=== PATIENT | female | born 1990 | race Caucasian/White ===

== ENCOUNTER 2021-12-28 07:41 | Outpatient (REF) | payer BC, SELFPAY ==
--- NOTE | ~2021-12-28 | XR_ITS ---
EXAMINATION: XR THORACIC SPINE CLINICAL INFORMATION: Pain in the thoracic spine COMPARISON: None TECHNIQUE: 3 views of the thoracic spine were obtained. FINDINGS: There is no fracture or bone destruction seen and the vertebral alignment is normal. There is no disc space narrowing. There is no abnormality of the paraspinal soft tissues. The visualized lungs are clear. XR/XR thoracic spine 3V IMPRESSION: Normal appearance of the thoracic spine.
--- NOTE | ~2021-12-28 | XR_ITS ---
EXAMINATION: XR RIBS, RIGHT CLINICAL INFORMATION: Right rib pain COMPARISON: None TECHNIQUE: 3 views of the right ribs were obtained. Frontal view of the chest. FINDINGS: Lungs are clear. No consolidation, pneumothorax, or pleural effusion. The cardiomediastinal silhouette and pulmonary vasculature are normal. Osseous structures are unremarkable. A marker overlies the lower right ribs. Ribs are intact. No fractures are identified. XR/XR ribs RT min 3V w CXR1V IMPRESSION: Clear lungs. No focal rib abnormality identified.
[2021-12-28 11:24] LABS: MANUAL DIFF FLAG NO
[2021-12-28 11:35] LABS: Appearance Urine HAZY; Color Urine YELLOW; Glucose Urine UA NEG (NEG); Leukocyte Esterase Urine NEG (NEG); Nitrite Urine NEG (NEG); Specific Gravity - Urine 1.025 (1.005-1.025); UACC Culture Trigger NO; Urine Blood TRACE (NEG); Urine Ketones NEG (NEG); Urine Protein NEG (NEG-TRACE)
[2021-12-28 11:40] LABS: Basophils Absolute Auto 0.1 X10*3/uL (0.0-0.2); Basophils Percent Auto 1.3 % (0-2); Eosinophils Absolute Auto 0.2 X10*3/uL (0.0-0.4); Eosinophils Percent Auto 3.4 % (0-4); Hematocrit 39.2 % (37.0-47.0); Hemoglobin 13.1 g/dl (12.0-16.0); Lymphocytes Absolute Auto 1.8 X10*3/uL (1.2-4.9); Lymphocytes Percent Auto 40.7 % (20-40); Mean Corpuscular HGB Conc 33.4 g/dl (31.0-35.0); Mean Corpuscular Hemoglobin 30.3 pg (27.0-33.0); Mean Corpuscular Volume 90.5 fL (80.0-98.0); Mean Platelet Volume 10.4 fL (9.4-12.3); Monocytes Absolute Auto 0.7 X10*3/uL (0.1-1.2); Monocytes Percent Auto 14.6 % (2-11); Neutrophils Absolute Auto 1.8 x10*3/uL (2.0-8.3); Platelet Count 239 X10*3/uL (160-400); Red Blood Count 4.33 X10*6/uL (4.20-5.50); Red Cell Distribution Width 12.4 % (11.0-16.0); White Blood Count 4.5 X10*3/uL (4.8-10.8)
[2021-12-28 11:59] LABS: Alanine Aminotransferase 13 U/L (0-31); Albumin Level 4.6 g/dL (3.5-5.0); Alkaline Phosphatase 52 U/L (39-117); Anion Gap 13 (12-20); Aspartate Amino Transferase 18 U/L (5-31); Bilirubin Total 0.7 mg/dL (0.0-1.0); Blood Urea Nitrogen 9 mg/dL (9-16); Calcium 9.5 mg/dL (8.4-10.2); Carbon Dioxide 23 mmol/L (22-29); Chloride 103 mmol/L (96-108); Cholesterol 176 mg/dL; Estimated Glomerular Filt Rate > 60; Glucose Fasting 90 mg/dL (60-99); HDL Cholesterol 58 mg/dL; LDL Cholesterol Calculated 92 mg/dl; Potassium 3.8 mmol/L (3.3-5.1); Sodium 135 mmol/L (135-145); Total Protein 7.7 g/dL (6.5-8.0); Triglycerides 130 mg/dL
[2021-12-28 12:11] LABS: Mucus Urine 1+ /LPF; Squamous Epithelial Cell Urine 1+ /LPF; WBC Urine 0 /HPF (0-4)
[2021-12-28 12:21] LABS: TSH reflex Free T4 1.61 uIU/mL (0.32-4.0)
== END 2021-12-28 07:42 | disposition home or self-care (01) ==
LOC: HO.HMGCX 07:41
PROVIDERS: PCP Nurse Practitioner Family; Visit Provider Nurse Practitioner Family
DX: Z00.00 Encounter for general adult medical examination without abnormal findings (principal); M54.6 Pain in thoracic spine
CPT/HCPCS: 36415; 71101; 72072; 80053; 80061; 81001; 84443; 85025

== ENCOUNTER 2022-03-07 07:00 | Outpatient (RCR) | payer BC, SELFPAY ==
--- NOTE | 2022-01-30 14:56 | MHC.PT.EP ---
[facility] [place] Office [place] Office [place] Office [address] [phone] F: [phone] F: [phone] F: [phone] F: [phone] Physical Therapy Plan of Care Date of Evaluation: Date of Surgery: none Diagnosis: pain in thoracic spine Assessment: Patient is a 31 year old R handed female who presents with s/s consistent with pain in thoracic spine. 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 Patient past medical history is unremarkable. Current impairments include pain, posture, ROM, strength, activity tolerance and functional mobility. Functional limitations include decreased ability to perform most activities due to progressing pain. Patient is motivated with good rehab potential. Skilled PT will address impairments and functional limitations in order to achieve goals. Frequency and Duration: The patient will be seen 2x/week for 4 weeks Short Term Goals: I with HEP - 2 weeks AROM full without pain - 2 weeks Shelter Goals: Return to all daily activities pain free - 4 weeks Oswestry 20% or less - 4 weeks Able to work full week without increased Treatment Plan: Modalities to reduce pain, spasms and effusion. Manual therapy to restore motion and function. Therapeutic exercise to improve strength and flexibility. Neuromuscular re-education for posture and balance. Therapeutic activities to return to functional activities of daily living. Electronically signed by: Gilberto Sage, PT Please sign and return to therapist. Thank you for your referral.
--- NOTE | 2022-04-18 11:38 | MHC.PT.DC ---
[facility] [place] Office [place] Office [place] Office [address] Roverto Gomez [address] [phone] F: [phone] F: [phone] F: [phone] F: [phone] Physical Therapy Discharge Report Diagnosis: pain in thoracic spine Date of Surgery: none Date of Evaluation: 01/30/22 Date of Discharge: 04/08/22 Treatments to Date: 7 Cancellations to Date: No Shows to Date: Discharge Status: Improved Function Independent with HEP Recommend MD Follow-up Discharge Summary: 03/07/22: pt has progressed over the course of skilled PT but seems to have plateaued. pain is less overall and less consistent but still present. she is I with HEP and has an appts with MD next week. we will wait to hear back before formally discharging. 02/28/22: Pt with reduced pain with stretching. we did start e-stim today to attempt desensitization. discussed home tens if successful. 2 more visits. 02/21/22: pt with some good days and some painful days, which overall is better than when she started PT but she is still having intermittent significant pain days. 02/15/22: pt progressing well with skilled PT overall. still very tender to light palpation and pressure. this is still of concern as light touch is perceived as painful. we may entertain e-stim in future visits. 02/12/22: pt has been feeling better but had not been able to perform HEP while in [place] over the weekend and notes maybe sleeping wrong. sore today. started PA mobs with some discomfort. slow sustained grade 1-2 today 02/04/22: pt progressed well since eval. notes feeling much better and has been compliant with HEP. Patient is a 31 year old R handed female who presents with s/s consistent with pain in thoracic spine. 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 Patient past medical history is unremarkable. Current impairments include pain, posture, ROM, strength, activity tolerance and functional mobility. Functional limitations include decreased ability to perform most activities due to progressing pain. Patient is motivated with good rehab potential. Skilled PT will address impairments and functional limitations in order to achieve goals. Electronically signed by: Gilberto Sage PT Please sign and return to therapist. Thank you for your referral.
== END 2022-04-18 11:38 | disposition home or self-care (01) ==
LOC: HO.PTCHIC 07:00
PROVIDERS: PCP Nurse Practitioner Family; Visit Provider Nurse Practitioner Family
DX: M54.6 Pain in thoracic spine (principal)
CPT/HCPCS: 97014; 97110; 97140; 97161